=== PATIENT | female | born 1955 | race Caucasian/White ===

== ENCOUNTER 2016-10-10 09:51 | Day surgery (SDC) | payer OTHER ==
[~2016-10-10] VITALS: Ht 170.2 cm; Wt 95.2 kg
[~2016-10-10 09:51] MED LIST: 0.9% Sodium Chloride 1,000 ML IV SCH; GUAI177L3 PO; IBUP200C PO; Sodium Chloride LOK Flush 10 mL Syringe IV PRN; TOLT2CAP PO; fentaNYL-PF 50 mCg/mL 2 mL Inj IVPUSH PRN
[2016-10-10 10:57] VITALS: BP 132/90; PULSE 86; RESP 15; O2SAT 92
[2016-10-10 12:13] VITALS: BP 115/57; PULSE 69; RESP 14; O2SAT 95
[2016-10-10 12:23] VITALS: BP 126/65; PULSE 68; RESP 14; O2SAT 94
[2016-10-10 12:39] VITALS: BP 130/83; PULSE 70; RESP 16; O2SAT 98
--- NOTE | 2016-10-10 18:30 | ENDO ---
[address] [address] ENDOSCOPY PROCEDURE PATIENT: GUIDO ZHU : 1955 MR#: [id number] ADMIT: 10/10/2016 JOB ID: [id number] PRIMARY PROVIDER: Debby Bean MD. PROCEDURE: Colonoscopy. INDICATIONS: A 60-year-old female reports for colon cancer screening and a personal history of serrated adenoma. EQUIPMENT: PCF-H180AL. SEDATION: 3 mg Versed, 100 mcg fentanyl. COMPLICATIONS: None identified. BOWEL PREPARATION: Fair. PROCEDURE INFORMATION: After the risks and benefits were explained, written and verbal informed consent was obtained, the patient was brought into the endoscopy suite and placed into the left lateral decubitus position. Sedation was achieved as above. Digital rectal examination was accomplished. No significant pathology appreciated. The scope was introduced into the rectum and advanced under direct visualization to the level of the cecum, as identified by the appendiceal orifice and ileocecal valve. The scope was slowly withdrawn to carefully examine the mucosa for any defects or lesions. Multiple direct views were made through the dentate line for exclusion of pathology. The colon was decompressed. The scope removed from the patient who tolerated the procedure well. FINDINGS: No significant polyps, mass lesions, or inflammatory features identified throughout. Diverticula were present in the left colon. ENDOSCOPIC DIAGNOSIS: Visually unremarkable colonoscopy to cecum. RECOMMENDATIONS: Repeat colonoscopy five years considering past history of serrated adenoma. MTDD
== END 2016-10-10 23:59 | disposition home or self-care (01) ==
LOC: END 09:51
PROVIDERS: ATTEND Internal Medicine Gastroenterology
DX: Z12.11 Encounter for screening for malignant neoplasm of colon (principal); K57.30 Diverticulosis of large intestine without perforation or abscess without bleeding; Z86.010 Personal history of colon polyps; Z85.3 Personal history of malignant neoplasm of breast; Z87.891 Personal history of nicotine dependence
CPT/HCPCS: 99153; G0105; G0500; J3010; J7030